=== PATIENT | female | born 1980 | race Caucasian/White ===

== ENCOUNTER 2018-04-25 08:16 | Emergency (ER) | payer BC, OTHER ==
[2018-04-25 08:24] VITALS: BP 132/107
--- NOTE | 2018-04-25 08:52 | EDPHY ---
H & P Stated Complaint: L forehead lac Time Seen by Provider: 04/25/18 08:51 HPI/ROS: HPI: This is a 38-year-old female who presents with Chief Complaint: Left forehead laceration Location: Left forehead Quality: Laceration Duration: Prior to arrival Signs and Symptoms: + bleeding, no radiation, no numbness, no weakness, no tingling, no incontinence, no decreased range of motion, no swelling, no pain, no fever Timing: Acute Severity: [id number] Context: Patient has developmental delays, presents with both parents with complaints of accidentally tripping this morning and hitting the edge of her left forehead on a cabinet. This was a witnessed fall that was due to tripping. Denies LOC/head injury/neck pain/dizziness/nausea/vomiting/amnesia. LMP 1-7 days ago. Reports tetanus is not current. Patient is having much difficulty understanding what is going on and is resistant to treatment or me examining her at all. Parents are at bedside trying to help. Modifying Factors: None Comment: ROS: see HPI Constitutional: No fever, no chills, no weight loss Eyes: No blurred vision Respiratory: No shortness of breath, no cough Cardiovascular: No chest pain Gastrointestinal: No nausea, no vomiting no diarrhea Genitourinary: No dysuria Extremities: No myalgias Neurologic: No weakness, no numbness Skin: No rashes Hematologic: No bruising, no bleeding MEDICAL/SURGICAL/SOCIAL HISTORY: Medical history: Angelman's syndrome, epilepsy Surgical history: Denies Social history: Never smoked. CONSTITUTIONAL: Moderate distress middle-aged white female, awake and alert, nontoxic appearance HEENT: 1 inch deep left forehead laceration near the hairline. Atraumatic and normocephalic. NECK: supple, no midline tenderness, flexion 45 degrees, extension 45 degrees, right and left lateral flexion 45 degrees. No meningismus. Cardiovascular: Normal S1/S2, regular rate, regular rhythm, without murmur rub or gallop. PULMONARY/CHEST: Symmetrical and nontender. no crepitus. Clear to auscultation bilaterally. Good air movement. No accessory muscle usage. ABDOMEN: Soft, nondistended, nontender, no ecchymosis. PELVIC: no pain with rocking; bilateral hips flexion 125 degrees, extension 30 degrees, with no pain internal rotation and no pain external rotation. BACK: No midline tenderness, no paraspinous spasm, deep tendon reflexes 2/2, no pain with straight leg raise, No foot drop. Achilles reflexes are equal bilaterally. Able to walk on heels and toes without difficulty. EXTREMITIES: 2/2 pulses, strength 5/5, DIP/PIP/MCP flexion/extension intact with good light touch sensation. no deformities, no clubbing, no cyanosis or edema. NEUROLOGICAL: no focal neuro deficits. GCS 15. Light touch sensation intact. SKIN: Warm and dry, no erythema. no rash. Good capillary refill. Source: Patient, Family Exam Limitations: Physical impairment - Personal History LMP (Females 10-55): 1-7 Days Ago Current Tetanus/Diphtheria Vaccine: No Current Tetanus Diphtheria and Acellular Pertussis (TDAP): No - Medical/Surgical History Hx Asthma: No Hx Chronic Respiratory Disease: No Hx Diabetes: No Hx Cardiac Disease: No Hx Renal Disease: No Hx Cirrhosis: No Hx Alcoholism: No Hx HIV/AIDS: No Hx Splenectomy or Spleen Trauma: No Other PMH: angelmans syndrome, epilepsy, - Social History Smoking Status: Never smoked Constitutional: Initial Vital Signs Temperature (C) 36.6 C 04/25/18 08:22 Heart Rate 84 04/25/18 08:22 Respiratory Rate 16 04/25/18 08:22 Blood Pressure 132/107 H 04/25/18 08:22 O2 Sat (%) 92 04/25/18 08:22 O2 Delivery Mode Room Air Allergies/Adverse Reactions: No Known Allergies Allergy (Unverified 04/25/18 08:21) Home Medications: Medication Instructions Recorded Caziant 28 Day Tablet 04/25/18 Depakote 04/25/18 Lorazepam 04/25/18 Senna 04/25/18 Medical Decision Making Procedures: Procedure: Laceration repair. Verbal consent was obtained from the patient. The 1 inch deep left forehead laceration near the hairline laceration was anesthetized in the usual fashion using let topical and 0.5% bupivacaine with epinephrine. The wound was irrigated, draped and explored to its base with a gloved finger. There were no deep structures involved. No tendon injury was identified. The wound was repaired with #4, 5-0 Prolene. Good hemostasis was achieved and patient tolerated procedure well. Bacitracin and clean sterile dressing applied. The procedure was performed by myself. . ED Course/Re-evaluation: Patient has no LOC. No neurological deficits. Does not need head CT imaging based on [facility] protocol. 0905: Versed 4 mg given due to uncooperativeness secondary to cognitive delay LET topical applied Laceration repaired with 4 non-absorbable sutures Verbal and written wound care instructions provided. History and physical exam are consistent. There is no concern for abuse or neglect. This patient was seen under the supervision of my secondary supervising physician. I evaluated care for this patient independently. Discussed this patient with Dr. Gorman who did not see the patient. Differential Diagnosis: Head injury including but not limited to concussion, skull fracture, intraparenchymal contusion, subarachnoid, subdural and epidural hematoma. - Data Points Medications Given: Discontinued Medications Midazolam HCl (Midazolam Hcl Oral Liquid) 4 mg PO ONCE ONE Stop: 04/25/18 09:01 Last Admin: 04/25/18 09:41 Dose: 4 mg Tetracaine/Epinephrine/Lidocaine (Let Gel Topical) 1 ea TP EDNOW ONE Stop: 04/25/18 08:57 Last Admin: 04/25/18 09:41 Dose: 1 ea Departure - Departure Disposition: Home, Routine, Self-Care Clinical Impression: Laceration of forehead without complication Qualifiers: Encounter type: initial encounter Qualified Code(s): S01.81XA - Laceration without foreign body of other part of head, initial encounter Condition: Good Instructions: Care For Your Stitches (ED), Laceration (ED), Head Injury (ED) Additional Instructions: Keep the dressing dry and in place for 48 hours. After 48 hours, you may remove the dressing; wash the site daily with mild soap and water; then pat dry. Take Tylenol 650 mg every 4 hours and/or Ibuprofen 600 mg every 8 hours with food as needed for pain. Apply ice for 30 minutes at a time; 2-3 times per day for the next 1-2 days. Wound Care Follow-Up: Removal of sutures in [5] days. Suture removal is complimentary in uncomplicated cases. Infection or abnormal findings would require reevaluation by the MD. In that case, you may be billed. Return to the ER immediately if you have progressive headaches, neurologic deficits, gait abnormality, visual disturbance, slurred speech, or any other symptom that concerns you. Referrals: PCP Not In,Dictionary [Medical Doctor] - Follow Up Only If Needed
[2018-04-25] MEDS ORDERED: LET GEL TOPICAL 1 EA SYR TP ONE (08:56)
[2018-04-25] MEDS ORDERED: MIDAZOLAM HCL 10 MG/5 ML PO ONE (09:00)
== END 2018-04-25 10:21 | disposition home or self-care (01) ==
PROC: 0HQ1XZZ Repair Face Skin, External Approach (ICD-10-PCS; principal; 2018-04-25)
DX: S01.81XA Laceration without foreign body of other part of head, initial encounter (principal); W01.198A Fall on same level from slipping, tripping and stumbling with subsequent striking against other object, initial encounter; Y99.8 Other external cause status